=== PATIENT | female | born 1995 | race Two or more races ===

== ENCOUNTER 2024-10-05 19:18 | Emergency (ER) | payer MEDICAID, SELFPAY ==
[2024-10-05 19:19] VITALS: BMI 38.4
[2024-10-05 19:34] VITALS: BP 130/85; PULSE 83; RESP 17; TEMP 36.7; O2SAT 99
--- NOTE | 2024-10-05 19:38 | EKG_ITS ---
[facility] Test Date: 2024-10-05 Pat Name: JUSTIN JONES Department: Room: - Gender: Female Domain Architect: : 1995 Requested By: Juan Manuel Valenzuela Order Number: [id number] Reading MD: Juan Manuel Valenzuela Measurements Intervals [place] Rate: 86 P: 38 NH: 163 QRS: 24 QRSD: 83 T: 31 QT: 354 QTc: 424 Interpretive Statements SINUS RHYTHM Compared to ECG 11/30/2023 10:25:24 Sinus arrhythmia no longer present /store/S0/[id number]/ecg/[id number].pdf
--- NOTE | 2024-10-05 19:38 | XR_ITS ---
Examination: PA lateral chest 2 views Technique: Upright PA lateral chest 2 views Exam date and time: October 05, 2024 1944 hrs. Comparison 05/09/2024 Indications: Chest pain beginning 5 days ago. Findings: Normal heart size No pneumonia or pulmonary edema The osseous structures are intact Impression: No active disease
--- NOTE | 2024-10-05 19:41 | PD.EDCHEST ---
ED Chest Pain RME/HPI General Chief Complaint: Chest Pain Stated Complaint: HEART BURN/ ANXIETY X 3DAYS Time Seen by Provider: 10/05/24 19:29 Arrival date/time: 10/05/24 19:18 RME / HPI RME / HPI narrative: Patient is a 29-year-old female who presents with complaint of chest pain for the last 5 days. Pain has been intermittent. Patient describes the pain as sharp. Patient reports that the pain gets worse after eating. She has been on omeprazole for GERD symptoms but she did not take it today. Denies any shortness of breath. No recent travel. No hormone use. No leg swelling. Related Data Previous Rx's ?Medication ?Instructions ?Recorded paroxetine HCl 10 mg tablet 10 mg PO QDAY #30 tabs 11/07/23 insulin glargine 100 unit/mL (3 30 unit (0.3 mL) subcut BID 30 11/14/23 mL) subcutaneous pen (Basaglar days #18 mL KwikPen U-100 Insulin) insulin lispro 100 unit/mL 1 sliding scale dose subcut 11/14/23 subcutaneous solution (Admelog USEASDIRECTD #10 mL U-100 Insulin lispro) meclizine 25 mg tablet 25 mg PO BID PRN dizziness #14 tabs 11/14/23 Allergies Allergy/AdvReac Type Severity Reaction Status Date / Time amoxicillin Allergy Severe Rash Verified 05/09/24 20:20 latex Allergy Severe Rash Verified 05/09/24 20:20 Review of Systems Review of Systems Systems Reviewed: All systems reviewed, normal except as documented ED Exam Narrative Physical exam: Constitutional: no acute distress, age appropriate, non-toxic Eyes: PERRL, conjunctivae w/o pallor, EOMI HENT: normocephalic, atraumatic. Oral mucosa moist Respiratory Effort: no stridor, effort normal, no retractions Breath sounds: Clear bilaterally; No rales, No rhonchi, No wheezing Cardiovascular: regular rhythm, S1 and S2 normal, no murmur Abdominal: soft; non-distended, non-tender Musculoskeletal: no deformities, no swelling, no LE edema Skin: warm, dry; No rash Neurology: alert, oriented X 4. Normal gait. Moves all extremities spontaneously. Psychology: cooperative, normal mood Course Quality Measures none Orders Category Date Time Status EKG (ED ONLY) *Do not use* NOW Care 10/05/24 19:38 Active EKG (ED Only) Stat Exams 10/05/24 19:38 Draft XR chest 2V Stat Exams 10/05/24 19:38 Completed CBC Stat Lab 10/05/24 19:55 Completed CMP [Comprehensive Metabolic Panel] Stat Lab 10/05/24 19:55 Completed HCG,Qualitative Serum Stat Lab 10/05/24 19:55 Completed Troponin I Stat Lab 10/05/24 19:55 Completed mg Hyd/Al Hyd/Alaina Susp [Maalox Susp] Med 10/05/24 19:39 Discontinued 30 ml PO X1 ONE Vital Signs Vital signs: Vital Signs Temperature 98.1 F 10/05/24 19:34 Pulse Rate 83 10/05/24 19:34 Respiratory Rate 17 10/05/24 19:34 Blood Pressure 130/85 H 10/05/24 19:34 Pulse Oximetry (%) 99 10/05/24 19:34 Oxygen Delivery Method Room Air 10/05/24 19:34 Chest Pain MDM Narrative MDM Narrative:: Patient with history as above presented with chest pain. History obtained from patient. Patient was nontoxic, stable. Ambulatory. Exam as above. EKG reviewed. Normal with no ischemic changes Labs reviewed. Unremarkable. Troponin within normal limits Independently interpreted imaging. Chest x-ray unremarkable. Reviewed external records. Differential diagnosis considered. Overall presentation is consistent with low risk chest pain. Low suspicion for ACS. Low risk by EDACS. Low suspicion for PE, low risk by clinical criteria. Low suspicion for pneumothorax, pneumonia, pericarditis, dissection, or other serious cause of chest pain. Patient was treated with pain medications with improvement in symptoms. Consideration was given for admission, but the patient was stable for outpatient management. Disposition: Discussed need to follow up diagnostics, including incidental findings. Discharged with instructions to obtain outpatient follow up of patient?s symptoms and findings, with strict return precautions if patient develops new or worsening symptoms. Patient data External records reviewed:: [facility] previous records Clinical information provided by:: patient Social determinants that could affect healthcare access:: none Patient has the following chronic illnesses:: GERD How is presenting disease/condition affected by chronic disease/condition?: exacerbated by Evaluation data The following diagnostics were reviewed and interpreted by me:: lab results, radiology exam(s) and EKG tracing(s) Lab and/or radiology exams considered but not ordered:: Considered CT angio, but PERC negative. Highly doubt PE Interpretation Summary: EKG medically necessary in the evaluation of chest pain and interpreted by me and ED physician at the time of patient evaluation. Normal sinus rhythm with a rate of 86. ID and QT intervals within normal limits. No ST/T changes. No STEMI. Interpretation: Normal EKG Chest x-ray shows no infiltrate, effusion, or pneumothorax per my independent interpretation. Medications / Prescriptions Medications or Prescriptions considered but not ordered:: N/A Medication administrations:: Medication Administration History Discontinued Medications Al Hydrox/Mg Hydrox/Simethicone (Mg Hyd/Al Hyd/Alaina (Maalox Reg) Susp 30 Ml Udc) 30 ml PO X1 ONE Stop: 10/05/24 19:40 Last Admin: 10/05/24 20:18 Dose: 30 ml Documented By: KF See above Consultations Consultation(s) initiated? (list below): No Diagnosis Chest Pain Differential Diagnosis: atypical chest pain, st elevation myocardial infarction, costochondritis and chest pain Most likely diagnosis given after review of the tests above:: Chest pain Admission Indicated Admission indicated?: not indicated Admission Request Was there a request for admission?: No Disposition Plan Disposition Plan: Discharge Discharge Attestation Discharge Attestation: The patient and all family members were given an opportunity to ask questions and understood the discharge instructions. Discharge instructions specifically effects, indications for sooner follow up or return to the emergency department, and the expected course of current diagnosis. Patient condition: Stable Discharge Plan Plan Patient Disposition: HOME (Self Care) Prescriptions/Referrals Prescriptions/Med Rec: No Action paroxetine HCl 10 mg tablet 10 mg PO QDAY Qty: 30 0RF insulin lispro [Admelog U-100 Insulin lispro] 100 unit/mL solution 1 sliding scale dose subcut USEASDIRECTD Qty: 10 2RF meclizine 25 mg tablet 25 mg PO BID PRN (Reason: dizziness) Qty: 14 0RF insulin glargine [Basaglar KwikPen U-100 Insulin] 100 unit/mL (3 mL) insulin pen 30 unit subcut BID 30 Days Qty: 18 1RF Referrals: Temporary Provider,ED [Physician] - In 1 week Problem List Clinical Impression: Chest pain Patient/Caregiver Discharge Instructions Education Materials: ED Chest Pain, Noncardiac Additional Instructions: Testing done today in the ED was very reassuring. Follow-up with your PCP for further evaluation of chest pain and possibly referral to senior tax accountant. Return to the ED at anytime for any new or worsening symptoms. Print Language: Macedonian Stand Alone Forms: Brandy Award Info., Patient Portal Info Letter
[2024-10-05 20:09] LABS: Basophils # (Auto) 0.1 Thou/mm3 (0.0-0.2); Basophils % (Auto) 1 % (0-2.5); Eosinophils # (Auto) 0.2 Thou/mm3 (0.0-0.5); Eosinophils % (Auto) 2 % (0-10); Hematocrit 41.1 % (36.0-46.0); Hemoglobin 13.8 g/dL (12.0-16.0); Immature Granulocytes % (Auto) 1 % (0-0); Immature Granulocytes Auto 0.05 Thou/mm3 (0.00-0.00); Lymphocytes # (Auto) 2.8 Thou/mm3 (1.0-4.8); Lymphocytes % (Auto) 28 % (10-50); Mean Corpuscular HGB Conc 33.6 g/dl (31.0-37.0); Mean Corpuscular Hemoglobin 29.4 pg (25.0-35.0); Mean Corpuscular Volume 88 fL (80-100); Monocytes # (Auto) 0.8 Thou/mm3 (0.0-0.8); Monocytes % (Auto) 8 % (0-12); Neutrophils # (Auto) 6.2 Thou/mm3 (1.8-7.7); Neutrophils % (Auto) 61 % (37-80); Nucleated Red Blood Cell % 0 /100 WBC (0); Platelet Count 441 Thou/mm3 (140-440); RDW Standard Deviation 38.2 fL (36.4-46.3); Red Blood Count 4.69 Miln/mm3 (4.00-5.20); White Blood Count 10.1 Thou/mm3 (3.6-11.0)
[2024-10-05] MEDS: MG HYD/AL HYD/SIME (Maalox Reg) SUSP 30 ML UDC PO (20:18)
[2024-10-05 20:32] LABS: Alanine Aminotransferase 15 U/L (10-49); Albumin, Serum 3.9 gm/dL (3.5-5.0); Albumin/Globulin Ratio 1.2 (1.2-2.2); Alkaline Phosphatase 76 U/L (46-116); Anion Gap 7 (7-16); Aspartate Amino Transferase 11 U/L (0-34); BUN/Creatinine Ratio 14 Ratio (12-20); Bilirubin,Total 0.4 mg/dL (0.3-1.2); Blood Urea Nitrogen 14 mg/dL (9-23); Calcium 8.8 mg/dL (8.3-10.6); Calcium (Corrected) 8.9 mg/dL (8.5-10.1); Carbon Dioxide 29.5 mMol/L (20.0-31.0); Chloride 99 mMol/L (98-107); Estimated Creatinine Clearance 89.3 mL/min (>60); Globulin 3.3 gm/dL (2.3-3.5); Glucose 244 mg/dL (74-106); Osmolality,Calculated 278 (275-295); Potassium 3.9 mMol/L (3.4-5.1); Sodium 135 mMol/L (136-145); Total Protein 7.2 gm/dL (5.7-8.2); Troponin I < 0.002 ng/mL (0.0-0.045); eGFR > 60 See Note
[2024-10-05 20:46] LABS: HCG,Qualitative Serum Negative
== END 2024-10-05 21:49 | disposition home or self-care (01) ==
PROVIDERS: Physician Assistant; Emergency Provider Emergency Medicine; PCP Family Medicine
DX: R07.9 Chest pain, unspecified (principal)
CPT/HCPCS: 36415; 71046; 80053; 84484; 84703; 85025; 93005; 99283; A9270